=== PATIENT | female | born 1985 | race Caucasian/White ===

== ENCOUNTER 2023-04-26 05:16 | Emergency (ER) | payer BC ==
[~2023-04-26] VITALS: Ht 170.2 cm; Wt 63.5 kg
[~2023-04-26 05:16] MED LIST: IBUP100T21
[2023-04-26 05:24] VITALS: BP_SYST 117; PULSE 76; RESP 18; TEMP 98.3; O2SAT 99
[2023-04-26] MEDS ORDERED: KETOROLAC TROMETHAMINE 30 MG VIAL IM ONE (06:00)
[2023-04-26 06:20] LABS: BASOPHILS # (AUTO) 0.1 K/uL (0.0-0.2); BASOPHILS % (AUTO) 1.7 % (0.0-2.0); EOSINOPHILS % (AUTO) 0.8 % (0.0-4.0); HEMATOCRIT 45.4 % (36-48); HEMOGLOBIN 14.9 g/dL (12.0-16.0); LYMPHOCYTES # (AUTO) 1.2 K/uL (1.0-5.5); LYMPHOCYTES % (AUTO) 29.6 % (20.5-51.5); MEAN CORPUSCULAR HEMOGLOBIN 28 pg (27-31); MEAN CORPUSCULAR HGB CONC 33 % (32-36); MEAN CORPUSCULAR VOLUME 86 fL (79.0-98.0); MONOCYTES # (AUTO) 0.3 K/uL (0.0-1.0); MONOCYTES % (AUTO) 6.4 % (1.7-9.3); NEUTROPHILS # (AUTO) 2.5 K/uL (1.8-7.7); NEUTROPHILS % (AUTO) 61.5 % (40.0-70.0); PLATELET COUNT (AUTO) 305 K/uL (130-430); RED BLOOD CELL COUNT(AUTO) 5.28 MIL/uL (4.2-6.2); RED CELL DISTRIBUTION WIDTH 13.2 % (9.0-15.0); WHITE BLOOD COUNT (AUTO) 4.1 K/uL (4.8-10.8)
[2023-04-26 06:27] LABS: BILIRUBIN,URINE NEGATIVE (NEGATIVE); BLOOD, URINE 1+ (NEGATIVE); CLARITY/URINE CLOUDY (CLEAR); COLOR,URINE YELLOW (YELLOW); GLUCOSE,URINE NEGATIVE (NEGATIVE); KETONES,URINE NEGATIVE (NEGATIVE); NITRITE, URINE POSITIVE (NEGATIVE); PROTEIN URINE 1+ (NEGATIVE); UROBILINOGEN,URINE 0.2 (0.2-1.0)
[2023-04-26 06:28] LABS: LEUKOCYTE ESTERASE ,URINE TRACE (NEGATIVE)
[2023-04-26 06:30] LABS: BACTERIA,URINE MANY /HPF (None Seen)
[2023-04-26] MEDS ORDERED: MORPHINE 2 MG/ML INJ. SYRINGE IVP ONE (06:45)
[2023-04-26] MEDS ORDERED: ONDANSETRON HCL 4 MG/2 ML VIAL IVP ONE (06:45)
[2023-04-26] MEDS ORDERED: NACL 0.9% 1,000 ML IV ONE ×2 (06:45→09:00)
[2023-04-26] MEDS ORDERED: cefTRIAXone 1 GM IVPB PREMIX 50 ML IV ONE (07:00)
[2023-04-26 07:37] LABS: ALBUMIN 4.5 g/dL (3.4-4.8); CREATININE 0.86 mg/dL (0.55-1.30); POTASSIUM 3.8 mmol/L (3.5-5.1); TOTAL BILIRUBIN 0.3 mg/dL (0.0-1.0); TOTAL PROTEIN, SERUM 8.4 g/dL (6.4-8.3)
[2023-04-26 07:48] LABS: CALCIUM 9.9 mg/dL (8.4-11.0)
[2023-04-26] MEDS ORDERED: LIDO1ADH22 TP (09:03)
[2023-04-26] MEDS ORDERED: CEPH-548 PO (09:03)
[2023-04-26] MEDS ORDERED: ACET-2634 PO (09:03)
[2023-04-26] MEDS ORDERED: CYCL10TA24 PO (09:03)
[2023-04-26] MEDS ORDERED: NAPR-688 PO (09:03)
[2023-04-26 09:23] VITALS: BP_SYST 109; PULSE 62; RESP 18; TEMP 97.5; O2SAT 100
== END 2023-04-26 09:26 | disposition home or self-care (01) ==
LOC: SED 05:16
DX: N12 Tubulo-interstitial nephritis, not specified as acute or chronic (principal); Z91.040 Latex allergy status; Z79.899 Other long term (current) drug therapy
CPT/HCPCS: 99285; 74176; 96365; 96375; 96361; 80053; 81001; 83690; 85025; 87040; 87086; 36415; 76376; 81025; 96372; 83605; J0696; J1885; J2405; J2270; J7030; 81000; 81015